=== PATIENT | female | born 1950 | race Caucasian/White ===

== ENCOUNTER 2017-05-12 15:32 | Inpatient (IN) | payer MEDICARE ==
[2017-05-12] MEDS ORDERED: METOPROLOL TARTRATE 25 MG TAB PO ONE (15:50)
--- NOTE | 2017-05-12 16:17 | RAD ---
PROCEDURE: Chest,2 Views CLINICAL HISTORY: chest/abd pain INDICATION: Same as above COMPARISON: 07/07/2013 TECHNIQUE: PA and and lateral chest radiographs were obtained. FINDINGS: Note is again made of discoid parenchymal scarring/atelectasis in the lingula of the left lung, unchanged since 06/28/2013 There are no discrete airspace infiltrates, pneumothoraces or pleural effusions. The pulmonary vascularity is normal The cardiomediastinal silhouette is unremarkable for patient's age and sex. IMPRESSION: There is no acute pleural-parenchymal process seen in the imaged lung schultz. Place of interpretation: [facility]iology. Electronically signed by: Shamir Acosta MD 05/12/2017 4:16 PM CDT Workstation: [id number]
--- NOTE | 2017-05-12 16:23 | RAD ---
EXAM DESCRIPTION: Abdomen Flat Upright CLINICAL HISTORY: chest/abd pain 3 days COMPARISON: None. FINDINGS: AP supine and upright views of the abdomen show no evidence for free intraperitoneal air. There are air-filled dilated loops of small bowel central abdomen. Mild scattered air-fluid levels are seen. There is a paucity of bowel gas in colon. No abnormal calcifications are seen in the expected location of the renal collecting systems. Visualized lung bases are unremarkable. Mild levocurvature of the mid lumbar spine. Moderate disc degenerative changes are seen at L4-5 and L5-S1. Vascular calcifications are seen. IMPRESSION: Air-filled dilated loops of small bowel central abdomen raising suspicion for possible at least partial distal small bowel obstruction. Consider further evaluation with CT of the abdomen and pelvis. Electronically signed by: Varun Gamboa MD 05/12/2017 4:23 PM CDT
[2017-05-12] MEDS ORDERED: THIAMINE HCL INJ 100 MG/ML VIAL ONE (16:27)
[2017-05-12] MEDS ORDERED: SOD CHL IVS ONE ×2 (16:33→19:00)
[2017-05-12] MEDS ORDERED: HYPERTONIC IVS ONE ×2 (16:33→19:00)
[2017-05-12] MEDS ORDERED: MAGNESIUM SULFATE PREMIX 2GM 2 GM in PREMIX BAG 1 BAG IVPB ONE (16:33)
[2017-05-12] MEDS ORDERED: POTASSIUM CHLORIDE ELIXIR 20 MEQ/15 ML UD PO ONE (16:35)
[2017-05-12] MEDS ORDERED: MAGNESIUM SULFATE PREMIX 2GM 50 ML IVPB ONE (16:37)
--- NOTE | 2017-05-12 17:15 | ED.PDOC ---
History of Present Illness - General Chief Complaint: General Stated Complaint: hypertension and racing heart Time Seen by Provider: 05/12/17 15:34 Source: patient Exam Limitations: no limitations - History of Present Illness Initial Comments: the patient is a 66-year-old female with a history of hyponatremia, hypertension and alcoholism along with some depression. The patient is presented secondary to palpitations with mild associated shortness of breath and mild chest discomfort. She has been feeling weak as well for the last couple of days. 2 days ago she quit drinking alcohol. 3 days ago she ran out her metoprolol. No diarrhea. No fevers. No dysuria. No syncope. Timing/Duration: other - 3 days Severity: moderate Improving Factors: rest Worsening Factors: movement Associated Symptoms: chest pain - much pain as a mild pressure with the palpitations, loss of appetite, malaise, weakness Allergies/Adverse Reactions: Allergies Amoxicillin Allergy (Verified 05/12/17 15:54) NOTED ON THE 05/23/13 BY EMILIA VIGIL Home Medications: Ambulatory Orders Lisinopril 40 mg PO AM #0 07/09/13 Meloxicam [Mobic] 15 mg PO 07/12/14 Albuterol Inhaler [Ventolin Hfa Inhaler] 2 puff INH QID PRN 05/12/17 Metoprolol Succinate [Toprol XL] 50 mg PO BEDTIME 05/12/17 Review of Systems - Review of Systems Constitutional: States: malaise, weakness EENTM: States: no symptoms reported Respiratory: States: short of breath - ild Cardiology: States: chest pain - mild, palpitations Gastrointestinal/Abdominal: States: nausea - mild Genitourinary: States: no symptoms reported Musculoskeletal: States: no symptoms reported Skin: States: no symptoms reported Neurological: States: anxiety, headache - mild, tremors - mild Endocrine: States: no symptoms reported All other Systems: No Change from Baseline Past Medical History (General) - Patient Medical History Hx Seizures: No Hx Stroke: No Hx Asthma: No Hx of COPD: No Hx Cardiac Disorders: Yes Hx Congestive Heart Failure: No Hx Pacemaker: No Hx Hypertension: Yes Hx Diabetes: No Hx MRSA: No Surgical History: no surgical history - Vaccination History Hx Tetanus, Diphtheria Vaccination: No Hx Influenza Vaccination: No Hx Pneumococcal Vaccination: No - Social History Hx Tobacco Use: Yes Hx Alcohol Use: Yes Hx Substance Use: No Hx Substance Use Treatment: No Hx Depression: No Hx Physical Abuse: No Hx Emotional Abuse: No - Activities of Daily Living Hospice Agency (if applicable):: None - Female History Patient is a Female of Child Bearing Age (10 -59 yrs old): No Patient : No Family Medical History - Family History Mother Family History: Unknown Physical Exam - Physical Exam General Appearance: Alert, Anxious, No apparent distress Eye Exam: bilateral normal Ears, Nose, Throat: hearing grossly normal, normal ENT inspection, normal pharynx Neck: non-tender, full range of motion, supple Respiratory: chest non-tender, lungs clear, normal breath sounds, no respiratory distress, no accessory muscle use Cardiovascular/Chest: normal peripheral pulses, no edema, tachycardia, irregularly irregular Peripheral Pulses: radial,right: 2+, radial,left: 2+, dorsalis pedis,right: 2+, dorsalis pedis,left: 2+, posterior tibialis,right: 2+, posterior tibialis,left: 2+ Gastrointestinal/Abdominal: non tender, soft Rectal Exam: deferred Back Exam: normal inspection, no CVA tenderness, no vertebral tenderness Extremity: normal range of motion, non-tender, normal inspection, no pedal edema , normal capillary refill Neurologic: no motor/sensory deficits, alert, normal mood/affect, oriented x 3 Skin Exam: normal color Comments: Vital Signs (72 hours) 05/12/17 15:36 Temperature 99.0 F Pulse Rate [ 117 H pulse ox] Respiratory 22 Rate Blood Pressure 151/107 [Left Arm] O2 Sat by Pulse 93 L Oximetry Progress - Progress Progress: 05/12/17 17:18 the patient is a 66-year-old female presenting to the emergency room due to multiple symptoms. She has significant hyponatremia, hypochloremia, hypokalemia, hypomagnesemia. She is also likely withdrawing some from alcohol. The patient has received some thiamine IV. She still needs the folate and multivitamin. The patient has also received some oral potassium and will need more the future. She is receiving IV magnesium. We are currently sending off for some IV hypertonic saline. This is being acquired from another hospital. The patient has received a small dose of Ativan. she is also received a dose of the metoprolol that she ran out of 3-4 days ago. The measures above have slowed the patient's heart rate down by 10-15 bpm. She is feeling somewhat better already. There is the question of a mild possible partial small bowel obstruction on x-ray. Her symptoms at least at this time do not appear consistent with that. This will bear following. Urinalysis is still pending at this time. Conttinue telemetry monitoring. So far this looks like a sinus tachycardia with PACs rather than atrial fibrillation. Cardiac enzymes are negative so far. - Results/Orders Results/Orders: Laboratory Tests 05/12/17 05/12/17 05/12/17 15:40 15:40 15:40 WBC 14.2 H RBC 4.62 Hgb 14.3 Hct 42.4 MCV 91.9 MCH 31.0 MCHC 33.8 RDW 13.7 Plt Count 324 MPV 9.4 Absolute Neuts (auto) 10.50 H Absolute Lymphs (auto) 2.70 Absolute Monos (auto) 0.80 Absolute Eos (auto) 0.00 Absolute Basos (auto) 0.10 Neutrophils % 74.3 Lymphocytes % 18.9 L Monocytes % 5.8 Eosinophils % 0.3 L Basophils % 0.7 PT 10.5 INR 0.930 PTT (SP) 30.8 D-Dimer, Quantitative < 230 Sodium 122 L Potassium 2.7 L Chloride 78 L* Carbon Dioxide 29 Anion Gap 17.7 BUN 10 Creatinine 0.96 BUN/Creatinine Ratio 10.4 Random Glucose 158 H Serum Osmolality 248.3 L* Calcium 9.0 Magnesium 1.6 L Total Bilirubin 1.0 AST 22 ALT 14 Alkaline Phosphatase 81 Creatine Kinase 59 CK-MB (CK-2) 2.1 CK-MB (CK-2) % Not Reportable Troponin I < 0.02 B-Natriuretic Peptide 132.0 H Serum Total Protein 8.0 Albumin 4.3 Globulin 3.7 H Albumin/Globulin Ratio 1.2 Amylase 67 Lipase 35 TSH 2.48 urinalysis is still pending at this time. chest x-ray shows no acute pathology. Abdominal x-ray shows mild dilated loops of small bowel possibly consistent with a partial small bowel obstruction. Departure - Departure Clinical Impression: Hypokalemia, Hyponatremia, Hypochloremia, Hypomagnesemia, Palpitations Alcohol withdrawal Qualifiers: Complication of substance-induced condition: uncomplicated Qualified Code(s): F10.230 - Alcohol dependence with withdrawal, uncomplicated Disposition: Admit Patient Home Medications: Ambulatory Orders Lisinopril 40 mg PO AM #0 07/09/13 Meloxicam [Mobic] 15 mg PO 07/12/14 Albuterol Inhaler [Ventolin Hfa Inhaler] 2 puff INH QID PRN 05/12/17 Metoprolol Succinate [Toprol XL] 50 mg PO BEDTIME 05/12/17 Decision To Admit - Decistion To Admit Decision to Admit Reason: Medical Nature Decision to Admit Date: 05/12/17 Decision to Admit Time: 17:21
--- NOTE | 2017-05-12 18:02 | HP ---
SUPERVISING PHYSICIAN: Speedy Mcdowell MD CHIEF COMPLAINT: Hypertension and palpitations. HISTORY OF PRESENT ILLNESS: Ms. Boyer is a 66-year-old, female patient with a past history of alcoholism and hypertension with some depression. She presented to the Emergency Department today secondary to having palpitations with some mild shortness of breath and mild chest discomfort. She notes that she has not been feeling well for the last couple of days. She notes that she drinks on a daily basis when she can financially afford alcohol which she says averages about four days a week. Her choice alcohol is whiskey. She drinks anywhere from a pint to a quart a day. She noted that her last drink was two days previous to this admission. She also notes that she ran out of her metoprolol three days ago and starting having the palpitations earlier today. She actually had been trying to take a family members home medications prior to admission to the Emergency Department. She denied any actual diarrhea, but notes she is having issues with constipation and has been actually having some nausea after meals due to the fact that she gets bloated. Studies in the Emergency Department initially included a CBC that showed she had a leukocytosis of 14.2 with an early left shift. Urinalysis also showed that she had 4+ bacteria with 10 to 20 WBCs on the microscopic exam and also notes she has chronic urinary tract infections with the last being treated within the last 30 days. She is unsure of what medications she was on. Her electrolytes showed she had a severe hyponatremia with a sodium of 122 with a hypokalemia with potassium 2.7. Renal functions were within normal limits. She also had a low magnesium of 1.6. Liver functions were all within normal limits as well as amylase and lipase. Cardiac enzymes initially showed troponin less than 0.02. She also had radiographic studies to include an abdominal x-ray and per radiologic interpretation there was note of air-filled, dilated loops of small bowel raising suspicion for possible partial small bowel obstruction. Dr. Mcdowell, Emergency Room physician , requested that the patient be admitted for severe hyponatremia and concerns for alcohol withdrawal given the patient's history. In the Emergency Department , she was given metoprolol initially with vital signs showing her to be hypertensive with a blood pressure of 151/107, heart rate 117. After metoprolol , blood pressure prior to admission to the Medical/Surgical Floor was 140/69, heart rate 70, saturation 98% on room air. She was given a single dose of Ativan, 100 mg of thiamine and 2 grams of magnesium and then admitted to the Medical/Surgical Floor. She is now admitted for severe hyponatremia and concern for alcohol withdrawal with hypertension and concern for developing small bowel obstruction. PAST MEDICAL HISTORY: 1. Hypertension. 2. Osteoarthritis of the hands. 3. Chronic obstructive pulmonary disease with chronic bronchitis in a smoker. 4. Chronic tobacco abuse. 5. Frequent urinary tract infections. 6. History of alcohol abuse. PAST SURGICAL HISTORY: 1. Hysterectomy. 2. Hemorrhoidectomy. CURRENT MEDICATIONS: 1. Metoprolol succinate 50 mg at bedtime. 2. Albuterol inhaler 2 puffs q.i.d. as needed. 3. Mobic 15 mg daily. 4. Lisinopril 40 mg daily. ALLERGIES: PENICILLIN. FAMILY HISTORY: Positive for both parents with alcoholism. Father had history of lymphoma. Mother from complications from a stroke. SOCIAL HISTORY: The patient lives near [facility]. She is now for 14 years. Her did pass away from multiple myeloma, who also was an alcoholic. She is retired. 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 She does have a significant history of tobacco abuse and smokes approximately half a pack a day and has since a young age. She notes she does drink on a regular basis. She reports that she drinks two large glasses of whiskey everyday when financially able to, which averages about four days a week. She notes she usually starts drinking early afternoon until she falls asleep. She denies drinking in the mornings, but does admit she is an alcoholic, but feels that she could quit at anytime. She denies any illicit drug use. REVIEW OF SYSTEMS: CONSTITUTIONAL: She notes she does have some general malaise and weakness which has been present for several weeks. HEENT: Denies sore throat, neck pain, neck stiffness, nasal congestion or vision disturbances. RESPIRATORY: She notes she has some shortness of breath associated with her palpitations as per history of present illness and normally uses an inhaler on a daily basis, but denies any hemoptysis or productive cough. CARDIOVASCULAR: As noted in history of present illness, chest pains with mild palpitations, but denies any syncopal episodes. GASTROINTESTINAL: She has some nausea and has recently had some issues with constipation. Last emesis was on the day of admission prior to going to the Emergency Department. She does periodically note that she has some streaky, red stools at times. NEUROLOGIC: She does note that in the last day or two she has had some anxiety issues with a mild headache and a very mild tremor. PHYSICAL EXAMINATION: VITAL SIGNS: Temperature on admission to the Emergency Department was 99.0 with pulse 117, blood pressure 151/107, saturation 93% on room air with respirations 22. After treatment with metoprolol and admission to the Medical/Surgical Floor , pulse was 78, blood pressure initially was 140/69, respirations 18, saturation 98% on room air. Admission weight 68.5 kg. GENERAL: The patient is very pleasant, appears to be in no acute distress . She is alert and obviously anxious, but had just gotten Ativan. She notes she has had some mild tremors over the last several days, but she is alert and oriented. HEENT: Tympanic membranes clear bilaterally. Oropharynx is pink, moist mucous membranes without any lesions. NECK: Supple without tenderness. Full range of motion. No jugular venous distention noted. CHEST: Lungs clear to auscultation bilaterally without any rhonchi, wheezes, or rales. CARDIOVASCULAR: Regular rate and rhythm with a faint systolic murmur which the patient notes has been present for well over three years and is followed by her primary care provider in [place], which she is unsure of the name. ABDOMEN: Positive bowel sounds. Some mild distention, but no rebound tenderness. There is some mild tenderness with palpation to the lower quadrants. EXTREMITIES: There is no cyanosis, clubbing or edema. INTEGUMENT: No rashes, no jaundice or spider angiomas on the chest wall or abdomen. NEUROLOGIC: The patient is alert and oriented times three. Cranial nerves II- XII are grossly intact. Facial features are symmetrical. Extraocular movements are within normal limits. She does have a mild tremor at rest which she says is fairly common for her. There are no neuro or sensory motor deficits noted. LABORATORY: CBC shows leukocytosis of 14.2, hemoglobin 14.3, hematocrit 42.4, platelet count 324,000. RBC indices within normal limits. Differential did show an early left shift with elevated absolute neutrophil count. Coagulation studies showed PT 10.5, PT-T 30.8, D-dimer less than 230. Chemistries showed a significant hyponatremia and hypokalemia with sodium 122, potassium 2.7. Chloride was low at 78. Anion gap was normal, CO2 was normal. BUN 10, creatinine 0.96. Glucose 158. Serum osmolality4 28, calcium 9.1, magnesium 1.6. Liver functions all within normal limits. Initial troponin less than 0.02 as well as CPK was normal. BNP slightly elevated at 132. Total protein normal, albumin normal. Pancreatic enzymes were within normal limits. TSH 2.48. Urinalysis showed 100 protein with trace intact blood and small leukocyte esterase on dipstick with microscopic exam showing 10 to 20 WBCs, 10 to 20 RBCs, 0 to 1 epithelials with 2+ amorphus material and 4+ bacteria. MICROBIOLOGY: Urine culture pending. RADIOLOGY: Initially in the Emergency Department, chest x-ray per radiologic interpretation showed no acute pleural parenchymal processes noted in imaged schultz. She then had an abdominal x-ray, flat and upright, and per radiologic interpretation there was note of air-filled, dilated loops of small bowel in the central abdomen, raising suspicion for possible at least partial distal small bowel obstruction. Consideration for CT of abdomen and pelvis. After admission to the Medical/Surgical Floor, a CT of the abdomen and pelvis with contrast was completed and per radiologic interpretation there was noted of multiple dilated loops of proximal and mid small bowel with normal caliber distal small bowel noted, suspicious for developing small bowel obstruction. EKG shows tachycardia with PACs. ASSESSMENT: 1. Symptomatic hyponatremia secondary to chronic alcoholism. 2. Moderate hypokalemia and hypomagnesemia secondary to ongoing alcohol abuse. 3. Mild alcohol withdrawal in the presence of alcoholism. 4. Chronic obstructive pulmonary disease with no obvious exacerbation on admission. 5. Chronic tobacco abuse, approximately half a pack a day in a chronic obstructive pulmonary disease patient. 6. Hypertension, uncontrolled secondary to failure to comply with medication regimen. 7. Chest pain and palpitations secondary to alcoholism and failure to comply with medication regimen. 8. Concerns for developing small bowel obstruction, unknown etiology. 9. Urinary tract infection as evidenced by 4+ bacteruria on admission urinalysis in a patient with a history of chronic urinary tract infections having recently been on antibiotics within the last 30 days. 10. Leukocytosis secondary to underlying urinary tract infection as well as exacerbated by developing partial small bowel obstruction and some demargination from ongoing nausea and vomiting. PLAN: Ms. Boyer is admitted to the Medical/Surgical Floor from the Emergency Department for treatment of underlying hyponatremia and other electrolyte imbalances to include hypokalemia and hypomagnesemia. She was given magnesium 2 grams IV in the Emergency Department as well as p.o. potassium. We will plan to start her on a banana bag, multivitamin with potassium 40 mEq 150 cc per hour. I will plan to recheck laboratory studies in the morning to include CBC, CMP and magnesium. Dr. Bishop has been consulted in regards to the small bowel obstruction and she will have a two series abdominal x-ray in the morning. She will also be made NPO tonight except for p.o. medications. We will resume her home home medications and treat her hypertension with clonidine p.r.n. as appropriate. I will start her on Librium 10 mg q.8h. in efforts to lessen any alcohol withdrawal symptoms. Urine cultures were submitted. Until sensitivity reports are available, we will treat with Rocephin 1 gram q.24h. Once culture results are available, we will target antibiotic therapy accordingly. In regards to chest pains, we will plan to repeat cardiac enzymes in 6 hours and again in the morning. We will plan to also repeat EKG in the morning. We will also start her on some Protonix for gastric protection as she remains NPO. We will also plan to provide her with the multivitamin infusion with folate and thiamine once her sodium normalizes . She will be started on DVT prophylaxis as per protocol. Anticipate length of stay to be two to three days pending clinical resolution of underlying hyponatremia and developing small bowel obstruction. Until discharge, we will continue to monitor the patient closely and await consultation with Dr. Bishop. #[id number] #[id number] TARA
[2017-05-12] MEDS ORDERED: cloNIDine HCL 0.2 MG TAB PO ONE (19:17)
[2017-05-12] MEDS ORDERED: chlordiazePOXIDE HCL 5 MG CAP PO PRN (19:18)
[2017-05-12] MEDS ORDERED: NON-FORMULARY MEDICATION 1 EA MIS (Lisinopril [Lisinopril] 40 MG) PO SCH (19:23)
[2017-05-12] MEDS ORDERED: SODIUM CHLORIDE 0.9% (FLUSH) 10 ML SYG IV PRN (19:25)
[2017-05-12] MEDS ORDERED: ALUM & MAG HYDROX-SIMETHICONE 30 ML UD PO PRN (19:25)
[2017-05-12] MEDS ORDERED: MAGNESIUM HYDROXIDE 30 ML UD PO PRN (19:25)
[2017-05-12] MEDS ORDERED: POTASSIUM CHLORIDE IVS SCH (19:30)
[2017-05-12] MEDS ORDERED: MULTIPLE VITAMIN IVS SCH (19:30)
[2017-05-12] MEDS ORDERED: [UNRECOGNIZED DRUG - OTHER] IVS SCH (19:30)
[2017-05-12] MEDS ORDERED: IV SET AND CAP CHANGE INJ INJ SCH (19:30)
[2017-05-12] MEDS ORDERED: ALBUTEROL SULFATE 2.5 MG/3 ML VIAL NEB PRN (19:35)
[2017-05-12] MEDS ORDERED: LISINOPRIL 10 MG TAB ONE (19:49)
[2017-05-12] MEDS ORDERED: cefTRIAXone SODIUM 1 GM VIAL ONE (19:50)
[2017-05-12] MEDS ORDERED: KCL 40MEQ/NS 1,000 ML IVS ONE (19:50)
[2017-05-12] MEDS ORDERED: SODIUM CHL 0.9% 50ML MIN-BAG+ 50 ML IVPB ONE (19:50)
[2017-05-12] MEDS ORDERED: MULTIPLE VITAMIN 10 ML VIAL ONE (19:52)
[2017-05-12] MEDS: cefTRIAXone SODIUM 1 GM in SODIUM CHL 0.9% 50ML MIN-BAG+ 50 ML IVPB SCH (20:26)
--- NOTE | 2017-05-12 20:52 | CT ---
PROCEDURE: Abdomen/Pelvis w/Contrast HISTORY: question SBO as noted on xray Indication: Same as above Comparison: X-ray of the abdomen done on the same day . Technique: CT of the abdomen and pelvis was done with intravenous contrast. Images were obtained from the lung base to the level of the pubic symphysis in axial plane, followed by orthogonal sagittal and coronal reconstruction. Oral contrast was not given for the study. The patient was injected with contrast intravenously, without any documented immediate adverse reactions. This exam was performed according to our departmental dose-optimization program, which includes automated exposure control, adjustment of the mA and/or KV according to the patient's size and/or use of iterative reconstruction technique. FINDINGS: Images through the lung bases do not show any focal infiltrates or pleural effusions. The liver, gallbladder, pancreas, spleen and the bilateral adrenal glands appear unremarkable. The bilateral kidneys enhance with contrast in a normal fashion. Multiple benign-appearing cortical cysts are seen in the bilateral kidneys The urinary bladder is unremarkable . The bilateral ureters and the bilateral periureteral soft tissues and fat planes are unremarkable. Multiple dilated loops of proximal and mid small bowel with normal caliber distal small bowel are noted suspicious for developing small bowel obstruction. The appendix is not visualized The ileocecal junction appears unremarkable. There is no CT evidence of acute colonic diverticulitis or colitis or large bowel obstruction. There is large bowel diverticulosis The splenic and portal veins are of normal caliber, without any filling defects. There is no pathological lymphadenopathy in the retroperitoneum or in the pelvic region. There is no evidence of free fluid or free air in the abdomen or the pelvic region. There is no clinically significant abdominal aortic aneurysm. Atherosclerotic calcifications involving the abdominal aorta and the takeoff of the superior mesenteric artery is noted Note is made of small fat-containing bilateral inguinal hernias The visualized lumbar spine shows multilevel degenerative change . The paravertebral soft tissues are unremarkable. The remainder of the pelvic structures are unremarkable. IMPRESSION: Multiple dilated loops of proximal and mid small bowel with normal caliber distal small bowel are noted suspicious for developing small bowel obstruction.. Location of Interpretation: Teleradiology Electronically signed by: Shamir Acosta MD 05/12/2017 8:51 PM CDT Workstation: [id number]
[2017-05-12] MEDS: METOPROLOL SUCCINATE XL 50 MG TAB PO SCH (21:15)
--- NOTE | 2017-05-12 21:38 | PCM.CORE ---
Physician DVT/VTE - Nurse DVT Assessment & Total Each Risk Factor Represents 2 Points: Age 60-74 Each Risk Factor Represents 1 Point: Hx of smoking past year Each Risk Factor is 1 Point: Hx of Inflammatory Bowel Disease, Obesity (BMI >25) DVT Assessment Score: 5 - 5 or more Very High Risk Treatments: Early Ambulation *, Sequential Compression Device Pharmacological: Enoxaparin 40mg SQ Daily
[2017-05-12] MEDS ORDERED: ENOXAPARIN SODIUM 40 MG/0.4 ML SYG SUBCU SCH (22:00)
[2017-05-12] MEDS: chlordiazePOXIDE HCL 5 MG CAP PO SCH (22:04)
[2017-05-13] MEDS ORDERED: KCL 40MEQ/NS 1,000 ML IVS SCH (04:00)
[2017-05-13] MEDS: chlordiazePOXIDE HCL 5 MG CAP PO SCH ×3 (05:36→21:59)
--- NOTE | 2017-05-13 07:09 | RAD ---
Procedure: XR ABDOMEN 2 VIEWS SUPINE ERECT Exam Date: 05/13/2017 Ordering Provider: Pavel Tran NP Clinical Indication: developing SBO Comparison: 05/12/2017 CT abdomen pelvis Findings: Gaseous distention of the central small bowel with gas seen distally in the colon. No colonic distention. There is no pneumoperitoneum. There are no suspicious calcifications. Pelvic phleboliths. There is no acute skeletal abnormality. Impression: 1. Features suspicious for partial small bowel obstruction. Electronically signed by: Kenny Chavarria MD 05/13/2017 7:08 AM CDT
[2017-05-13] MEDS: LISINOPRIL 10 MG TAB PO SCH (09:29)
[2017-05-13] MEDS ORDERED: MULTIPLE VITAMIN 10 ML VIAL ONE (09:53)
[2017-05-13] MEDS ORDERED: SODIUM CHLORIDE 0.9% 1000ML 1,000 ML ONE (09:53)
[2017-05-13] MEDS ORDERED: THIAMINE HCL INJ 100 MG/ML VIAL ONE (09:53)
[2017-05-13] MEDS: MULTIPLE VITAMIN INJ 10 ML, THIAMINE HCL INJ 100 MG in SODIUM CHLORIDE 0.9% 1000ML 1,00... IVS SCH (10:16)
[2017-05-13] MEDS ORDERED: MAGNESIUM HYDROXIDE 30 ML UD PO ONE (10:22)
--- NOTE | 2017-05-13 10:41 | CONS ---
DATE OF CONSULTATION: 05/13/17 HISTORY OF PRESENT ILLNESS: The patient is a 66-year-old female who was admitted with weakness, shortness of breath, and chest discomfort. She was found to have been hypokalemic, hyponatremic with a distended abdomen and a history of abdominal distention with nausea and vomiting over the last several months on an intermittent basis. She denies vomiting of blood or having bloody or melanotic stools. She states that she can tell that her abdomen is rumbling , but denies significant real cramps. The patient states she has had trouble with constipation over time where she would have intermittent hard stools mixed in with loose diarrhea stools. She has a halfway history of ongoing urinary tract infections. CT scan of the abdomen revealed dilated loops of small bowel suspicious for partial or early small bowel obstruction. PAST MEDICAL HISTORY: 1. Chronic obstructive pulmonary disease with bronchitis. 2. Tobacco abuse. 3. Osteoarthritis. 4. Hypertension. 5. Urinary tract infections. 6. History of alcohol abuse. PAST SURGICAL HISTORY: 1. Hysterectomy. 2. Hemorrhoidectomy. CURRENT MEDICATIONS: 1. Metoprolol. 2. Albuterol. 3. Mobic. 4. Lisinopril. ALLERGIES: PENICILLIN. FAMILY HISTORY: Positive for alcohol abuse, lymphoma and cerebrovascular accident. SOCIAL HISTORY: The patient is . She lives at [facility]. She has smoked since the age of 10 and does abuse alcohol and has since she was a teenager. She denies the use of street drugs at any time. She also states she has never had withdrawal symptoms. REVIEW OF SYSTEMS: There has been no significant weight loss. She denies shortness of breath except with exercise. Denies productive cough or hemoptysis. Chest pain that she came to the Emergency Room with is a new thing. PHYSICAL EXAMINATION: GENERAL: The patient is awake, alert, cooperative, and currently in no acute distress. VITAL SIGNS: The patient is currently afebrile, normotensive. HEENT: Sclerae nonicteric. Mucous membranes moist. NECK: Without adenopathy. BACK: Without CVA tenderness. CHEST: Equal breath sounds bilaterally. HEART: Regular rhythm. ABDOMEN: Soft, distended and nontender. Bowel sounds are hyperactive, but there are no tinkles or rushes noted. There are nontender reducible hernias bilaterally in the groins. PELVIC/RECTAL: Deferred. EXTREMITIES: Without cyanosis, clubbing or edema. LABORATORY: Today, white count 9,000 down from 14,000. Hemoglobin 12.8. Platelet count 264,000 and normal differential. Sodium is up to 125 from 122. Potassium is to 4.5 from 2.7. Creatinine is down to 0.89. Calcium is down to 8.5. Magnesium is up to 2.4. Troponin has remained normal. X-rays today still show dilated loops of small bowel, appear to be gas-filled. There is a large amount of air in the colon. There is no transition point noted. I&O reveals adequate urine and the patient states she has had a bowel movement this morning. She has been drinking water despite being NPO. ASSESSMENT: 1. Ileus versus partial bowel obstruction with no signs of ischemic bowel. 2. Urinary tract infection. 3. History of alcohol abuse. 4. Chronic obstructive pulmonary disease secondary to tobacco abuse. RECOMMENDATION: We will attempt a clear liquid diet, give the patient a dose of Milk of Magnesia and repeat the x-rays in the morning. #[id number] [facility]
[2017-05-13] MEDS: NICOTINE PATCH 14 MG TD SCH (11:33)
[2017-05-13] MEDS ORDERED: THIAMINE HCL INJ 100 MG/ML VIAL IV ONE (15:50)
[2017-05-13] MEDS ORDERED: cloNIDine HCL 0.2 MG TAB PO ONE (15:50)
--- NOTE | 2017-05-13 19:58 | PN ---
DATE: 05/13/17 SUPERVISING PHYSICIAN: Speedy Mcdowell M.D. SUBJECTIVE: The patient is without any chest pains. She has not had any nausea or vomiting. She actually said she had a bowel movement through the night. She remains afebrile. She has not had any worsening signs of alcohol withdrawal after being on Librium. OBJECTIVE: VITAL SIGNS: T max 97.8, pulse 64, blood pressure 120/85, respirations 16, satting 96% on room air. I's and O's show a positive balance of 903 with 1303 in, 400 out. Weight 69.4 kg. She has had 1 bowel movement. CHEST: Lungs are clear to auscultation. HEART: regular rate and rhythm. ABDOMEN: Soft, non-tender. Positive bowel sounds. EXTREMITIES: No clubbing, cyanosis or edema. NEUROLOGIC: She is alert and oriented times three. PSYCHIATRIC: She remains alert and oriented. She has not reported any auditory or visual hallucinations and remains without any other signs of withdrawal. LABORATORY: CBC to now shows a normal white count at 9.0, otherwise all within normal limits. Differential shows to be within normal limits. Chemistries show an improvement in her sodium, it is up to 125 as well as chloride is up to 89. BUN 11, creatinine 0.89, osmolality is up to 251, magnesium is normalized at 2.4. Troponins show all to be within normal limits at 0.02 or less. CPK is within normal limits. MICROBIOLOGY: Preliminary urine culture shows gram-negative rods with sensitivity pending. RADIOLOGY: Abdominal x-ray 2 view this morning per radiology interpretation shows features suspicious for partial small bowel obstruction. ASSESSMENT: 1. Symptomatic hyponatremia secondary to chronic alcoholism showing improvement after IV fluids. 2. Moderate hypokalemia and hypomagnesemia secondary to ongoing alcohol abuse now normalized after replacement with p.o. potassium as well as IV potassium and magnesium. 3. Mild alcohol withdrawal without any delirium tremors in the presence of alcoholism. 4. Chronic obstructive pulmonary disease with no obvious exacerbation on admission. 5. Chronic tobacco abuse of approximately 1/2 pack a day in a chronic obstructive pulmonary disease patient encouraged to stop smoking currently on nicotine patch. 6. Hypertension, uncontrolled secondary to failure to comply with medication regimen showing improvement after resuming medication regimen and p.r.n. Clonidine. 7. Chest pains reported as more of a palpitation secondary to the patient being noncompliant with her medication regimen having been off of beta inocencia for several days exacerbated by ongoing chronic alcohol abuse showing to be stable now back on beta blockade. 8. Partial small bowel obstruction, unknown etiology, followed by Dr. Bishop. 9. Urinary tract infection with gram-negative rods on preliminary urine culture with the patient on parenteral antibiotics to include Rocephin. 10. Leukocytosis secondary to underlying urinary tract infection as well as exacerbated by developing partial small bowel obstruction showing now normalization after IV fluids and IV antibiotics. PLAN: Will continue with the patient's plan of care in conjunction with Dr. Bishop in regards to small bowel obstruction. Dr. Bishop has given the patient a diet of clear liquids and encouraged ambulation. She remain on Librium and daily banana bag with thiamine both to improve fluid status and hyponatremia. Will anticipate discharge at Dr. Bishop's discretion once small bowel obstruction has clinically improved and the patient is able to tolerate a diet. Until discharge, will continue to monitor the patient closely and treat appropriately. #[id number] [facility]
[2017-05-13] MEDS ORDERED: SODIUM CHL 0.9% 50ML MIN-BAG+ 50 ML IVPB ONE (20:12)
[2017-05-13] MEDS ORDERED: cefTRIAXone SODIUM 1 GM VIAL ONE (20:12)
[2017-05-13] MEDS: cefTRIAXone SODIUM 1 GM in SODIUM CHL 0.9% 50ML MIN-BAG+ 50 ML IVPB SCH (20:50)
[2017-05-13] MEDS: ACETAMINOPHEN 325 MG TAB PO PRN (20:51)
[2017-05-13] MEDS: SODIUM CHLORIDE 0.9% (FLUSH) 10 ML SYG IV SCH (20:51)
[2017-05-13] MEDS: METOPROLOL SUCCINATE XL 50 MG TAB PO SCH (20:52)
[2017-05-13] MEDS ORDERED: ENOXAPARIN SODIUM 40 MG/0.4 ML SYG SUBCU SCH (21:00)
[2017-05-14] MEDS: ACETAMINOPHEN 325 MG TAB PO PRN (02:57)
[2017-05-14] MEDS: chlordiazePOXIDE HCL 5 MG CAP PO SCH ×2 (06:35→14:30)
--- NOTE | 2017-05-14 06:41 | RAD ---
Procedure: XR ABDOMEN 2 VIEWS SUPINE ERECT Exam Date: 05/14/2017 Ordering Provider: GARRETT ISAAC MD Clinical Indication: fu bowel obstruction Comparison: 05/13/2017 Findings: Stable gaseous distention of the central small bowel with gas seen distally in the colon. No colonic distention. There is no pneumoperitoneum. There are no suspicious calcifications. Pelvic phleboliths. There is no acute skeletal abnormality. Impression: 1. Persistent features of partial small bowel obstruction. Electronically signed by: Kenny Chavarria MD 05/14/2017 6:41 AM CDT
[2017-05-14] MEDS ORDERED: SODIUM CHLORIDE 0.9% 1000ML 1,000 ML ONE (09:06)
[2017-05-14] MEDS ORDERED: THIAMINE HCL INJ 100 MG/ML VIAL ONE (09:06)
[2017-05-14] MEDS: MULTIPLE VITAMIN INJ 10 ML, THIAMINE HCL INJ 100 MG in SODIUM CHLORIDE 0.9% 1000ML 1,00... IVS SCH (09:06)
[2017-05-14] MEDS ORDERED: MULTIPLE VITAMIN 10 ML VIAL ONE (09:07)
[2017-05-14] MEDS: LISINOPRIL 10 MG TAB PO SCH (09:08)
[2017-05-14] MEDS: SODIUM CHLORIDE 0.9% (FLUSH) 10 ML SYG IV SCH (09:08)
[2017-05-14] MEDS: NICOTINE PATCH 14 MG TD SCH (09:08)
[2017-05-14] MEDS ORDERED: cloNIDine HCL 0.1 MG TAB PO ONE (13:02)
[2017-05-14 13:05] VITALS: BP 200/100; TEMP 97.1; O2SAT 98
--- NOTE | 2017-05-14 21:51 | DS ---
SUPERVISING PHYSICIAN: Speedy Mcdowell M.D. DISCHARGE DIAGNOSIS: 1. Diverticulosis with strong suspicion of a rectovaginal fistula. 2. Partial small bowel obstruction. 3. Urinary tract infection. 4. Symptomatic hyponatremia on admission with an underlying chronic hyponatremia secondary to chronic alcoholism. 5. Moderate hypokalemia and hypomagnesemia that has resolved most likely due to ongoing alcohol abuse. 6. Chronic obstructive pulmonary disease. 7. Chronic tobacco abuse. She smokes approximately 1/2 pack of cigarettes a day. 8. Hypertension with poor medical compliance. 9. Chest pains and palpitations secondary to alcoholism and failure to comply with the medication regimen. 10. Leukocytosis on admission that has now resolved. HISTORY OF PRESENT ILLNESS: This is a 66 year-old female patient who has a history of alcoholism and hypertension that presented to the Emergency Room secondary to having palpitations and shortness of breath as well as some mild chest discomfort. She had not been feeling well for several days prior to her admission to the Emergency Room. She does drink alcohol on a daily basis when she can afford it and she averages about 4 to 5 days per week and her alcohol of choice is whiskey. She drinks approximately a pint to 1 quart daily. She also smoked 1/2 pack of cigarettes per day and has a history of chronic obstructive pulmonary disease. She had also run out of her Metoprolol several days prior and had not gotten it refilled. In the Emergency Room, her WBCs were 14.2 with an early left shift. She had a urinary tract infection on admission with 4+ bacteria, 10 to 20 urine WBCs and she also says that she has chronic urinary tract infections, her last one being treated approximately 30 days prior to admission. Electrolytes showed a severe hyponatremia with sodium 122 and hypokalemia with potassium 2.7. Her renal functions were within normal limits. Cardiac enzymes were negative. Magnesium was also low at 1.6. Liver function tests were within normal limits. Radiographic studies showed that she had air-filled dilated loops of small bowel raising suspicions for possible partial bowel obstruction. She was admitted for severe hyponatremia, alcohol withdrawal, hypokalemia and partial bowel obstruction as well as hypertension. Vital signs on admission had a heart rate of 70, blood pressure 140/69, O2 sats of 98%. She was admitted to the Medical/Surgical floor. HOSPITAL COURSE: WBCs stabilized overnight to 9,000. Her H&H was stable. Sodium was slowly corrected and today is 127 with potassium 4.2. Metoprolol was restarted and her blood pressure stabilized initially, but occasionally has gone up into the 170s/90s. She was given an additional dose of Clonidine and that brought her blood pressure down to the 150s/70s. She was also started on Librium every 8 hours as well as a nicotine patch. The patient also voiced concerns that when she urinated that it seemed that she frequently had stool in her urine. CT of the abdomen showed multiple dilated loops of proximal and mid small bowel with normal caliber distal small bowel noted suspicious for developing small bowel obstruction. Dr. Bishop was consulted and he voiced concerns that she had an ileus versus a partial small bowel obstruction, but that she had no signs of ischemic bowel but he also voiced concerns that there could be a rectovaginal fistula. She also has not ever had a colonoscopy and she did have a sister that from colon cancer. Given those concerns, Dr. Bishop spoke with Dr. Pena, weight reducing technician, and he suggested that she be transferred to [facility] for a colonoscopy as well as, if needed, a surgical intervention based on those results. The patient has been accepted at [facility] for transfer. DISCHARGE PLAN: The patient will be discharged in good condition to [facility]. She will be discharged in stable condition. She is presently on clear liquids and she is to continue that until further notice by the GI doctor. I continued her Rocephin as well as her home medications. I have also continued her Librium and I have sent all of her records, including labs and film reports to [facility]. She is to followup with her primary care physician after discharge from [facility]. At this point, she does not have a primary care physician, but I have encouraged her to do so. DISCHARGE MEDICATIONS: 1. Lisinopril. 2. Meloxicam. 3. Metoprolol. 4. Albuterol inhaler. 5. Ceftriaxone. Dr. Mcdowell is the collaborating physician and available for consultation. #[id number] [facility]
== END 2017-05-14 15:23 | disposition short-term general hospital (02) | DRG 897 ==
LOC: ER 15:32 → MS 18:00 → UNDOADMIN 18:00 → MS 23:51
PROVIDERS: ADMIT Nurse Practitioner Family; ATTEND Nurse Practitioner Acute Care
DX: F10.239 Alcohol dependence with withdrawal, unspecified (principal); E87.1 Hypo-osmolality and hyponatremia; N82.3 Fistula of vagina to large intestine; K56.60 Unspecified intestinal obstruction; N39.0 Urinary tract infection, site not specified; E87.6 Hypokalemia; E83.42 Hypomagnesemia; K57.90 Diverticulosis of intestine, part unspecified, without perforation or abscess without bleeding; J44.9 Chronic obstructive pulmonary disease, unspecified; F17.210 Nicotine dependence, cigarettes, uncomplicated; M19.90 Unspecified osteoarthritis, unspecified site; I10 Essential (primary) hypertension; R07.9 Chest pain, unspecified; R00.2 Palpitations; F32.9 Major depressive disorder, single episode, unspecified; Z91.14 Patient's other noncompliance with medication regimen; Z79.899 Other long term (current) drug therapy; Z88.0 Allergy status to penicillin; Z79.1 Long term (current) use of non-steroidal anti-inflammatories (NSAID)

== ENCOUNTER 2017-09-24 13:41 | Emergency (ER) | payer MEDICARE ==
--- NOTE | 2017-09-24 14:25 | ED.PDOC ---
History of Present Illness - General Chief Complaint: General Stated Complaint: ELEVATED BP AND WEAKNESS IN LE Time Seen by Provider: 09/24/17 13:55 Source: patient, RN notes reviewed, Vital Signs reviewed Exam Limitations: no limitations - History of Present Illness Initial Comments: Patient comes in with c/o weakness that has gotten progressively worse over the past 2 weeks. Reports it feels the same as when her Sodium was low on her last visit. She also has high blood pressure but this is not new. It has been going on since she was last admitted here in March 2017. She does report she is still drinking Etoh but much less than before. Still smoking and had cut down the salt in her diet. Timing/Duration: getting worse - Over the past 2 weeks Severity: moderate Improving Factors: nothing Worsening Factors: movement Associated Symptoms: malaise, weakness Allergies/Adverse Reactions: Allergies Amoxicillin Allergy (Verified 09/24/17 13:55) NOTED ON THE 05/23/13 BY EMILIA VIGIL Home Medications: Ambulatory Orders Lisinopril 40 mg PO AM #0 07/09/13 Meloxicam [Mobic] 15 mg PO DAILY 07/12/14 Albuterol Inhaler [Ventolin Hfa Inhaler] 2 puff INH QID PRN 05/12/17 amLODIPine BESYLATE [Norvasc] 5 mg PO DAILY 09/24/17 Review of Systems - Review of Systems Constitutional: States: see HPI, malaise, weakness EENTM: States: no symptoms reported Respiratory: States: no symptoms reported. Denies: short of breath Cardiology: States: see HPI, other - Hypertension & a murmur Gastrointestinal/Abdominal: States: diarrhea - Chronic X 1year Genitourinary: States: no symptoms reported Musculoskeletal: States: no symptoms reported Skin: States: no symptoms reported Neurological: States: no symptoms reported All other Systems: No Change from Baseline Past Medical History (General) - Patient Medical History Hx Seizures: No Hx Stroke: No Hx Asthma: No Hx of COPD: No Hx Cardiac Disorders: Yes Hx Congestive Heart Failure: No Hx Pacemaker: No Hx Hypertension: Yes Hx Diabetes: No Hx Cancer: No Hx Hepatitis C: No Hx MRSA: No Surgical History: Hysterectomy - Vaccination History Hx Tetanus, Diphtheria Vaccination: No Hx Influenza Vaccination: No Hx Pneumococcal Vaccination: No Immunizations Up to Date: No - Social History Hx Tobacco Use: Yes Hx Alcohol Use: Yes - 1/2 GALLON IN A WEEK Hx Substance Use: No Hx Substance Use Treatment: No Hx Depression: No Hx Physical Abuse: No Hx Emotional Abuse: No - Female History Patient is a Female of Child Bearing Age (10 -59 yrs old): No Patient : No Family Medical History - Family History Father Living Status: Hx Family Asthma: No Hx Family Congestive Heart Failure: No Hx Family Hypertension: No Hx Family Stroke: No Hx Cardiac Disease: No Hx Family Diabetes: No Hx Family Cancer: Yes Mother Family History: Unknown Living Status: Age at (years of age): 65 Cause of : stroke Hx Family Asthma: No Hx Family Congestive Heart Failure: Yes Hx Family Hypertension: Yes Hx Family Stroke: Yes Hx Cardiac Disease: Yes Hx Family Diabetes: No Hx Family Cancer: Yes Physical Exam - Physical Exam General Appearance: Alert, Comfortable, No apparent distress, Well Developed, Well Groomed, Well Hydrated, Well Nourished Ears, Nose, Throat: hearing grossly normal, normal ENT inspection Neck: non-tender, supple, normal inspection Respiratory: chest non-tender, lungs clear, normal breath sounds, no respiratory distress, no accessory muscle use Cardiovascular/Chest: normal peripheral pulses, regular rate, rhythm, no edema, no gallop, systolic murmur Peripheral Pulses: radial,right: 2+, radial,left: 2+ Gastrointestinal/Abdominal: normal bowel sounds, non tender, soft, no organomegaly, no pulsatile mass Extremity: normal inspection, no pedal edema Neurologic: alert, normal mood/affect, oriented x 3 Skin Exam: normal color, warm/dry Comments: Vital Signs 09/24/17 09/24/17 13:56 14:05 Temperature 99.3 F Pulse Rate [ 104 H 100 H MONITOR] Respiratory 18 18 Rate Blood Pressure 143/103 145/81 [Left Arm] O2 Sat by Pulse 97 97 Oximetry Progress - Progress Progress: 09/24/17 15:37 Sodium is 120 - will start Hypertonic saline @ 150cc/hr 09/24/17 19:55 Repeat Na is 128. Will d/c home with instructions to increase salt intake and get labs rechecked w/in 2 weeks. - Results/Orders Results/Orders: Laboratory Tests 09/24/17 09/24/17 09/24/17 14:34 14:34 19:34 WBC 12.6 H RBC 4.69 Hgb 14.5 Hct 42.9 MCV 91.3 MCH 31.0 MCHC 33.9 RDW 14.3 Plt Count 303 MPV 7.8 Absolute Neuts (auto) 9.70 H Absolute Lymphs (auto) 1.90 Absolute Monos (auto) 0.70 Absolute Eos (auto) 0.20 Absolute Basos (auto) 0.10 Neutrophils % 77.0 Lymphocytes % 15.4 L Monocytes % 5.6 Eosinophils % 1.2 Basophils % 0.8 Sodium 120 L 128 L Potassium 3.8 3.4 L Chloride 81 L 90 L Carbon Dioxide 26 27 Anion Gap 16.8 14.4 BUN 16 15 Creatinine 1.03 0.97 BUN/Creatinine Ratio 15.5 15.5 Random Glucose 115 H 97 Serum Osmolality 244.3 L* 257.8 L Calcium 9.1 8.7 Magnesium 2.0 Total Bilirubin 0.7 AST 24 ALT 15 Alkaline Phosphatase 74 Serum Total Protein 7.7 Albumin 4.2 Globulin 3.5 Albumin/Globulin Ratio 1.2 - EKG/XRAY/CT CT Ordered: No CT Interpretation Call Back: No Departure - Departure Clinical Impression: Hyponatremia Time of Disposition: 19:56 Disposition: Discharge to Home or Self Care Condition: Fair Departure Forms: ED Discharge - Pt. Copy, Patient Portal Self Enrollment Instructions: DI for Hyponatremia Diet: resume usual diet - but increase salt intake Activity: increase activity as tolerated Referrals: Brian Ribeiro MD [Active Staff] - 1-2 Weeks (Recheck electrolytes) Home Medications: Ambulatory Orders Lisinopril 40 mg PO AM #0 07/09/13 Meloxicam [Mobic] 15 mg PO DAILY 07/12/14 Albuterol Inhaler [Ventolin Hfa Inhaler] 2 puff INH QID PRN 05/12/17 amLODIPine BESYLATE [Norvasc] 5 mg PO DAILY 09/24/17
[2017-09-24] MEDS ORDERED: SOD CHL 3% *HYPERTONIC* 500ML 500 ML IVS ONE (15:20)
[2017-09-24 19:40] VITALS: TEMP 98.1; O2SAT 97
[2017-09-24 20:07] VITALS: BP 133/79
== END 2017-09-24 20:07 | disposition home or self-care (01) ==
LOC: ER 13:41
DX: E87.1 Hypo-osmolality and hyponatremia (principal); I10 Essential (primary) hypertension; Z88.3 Allergy status to other anti-infective agents; Z79.899 Other long term (current) drug therapy; Z87.891 Personal history of nicotine dependence
CPT/HCPCS: 36415; 80048; 80053; 83735; 85025; J7799

== ENCOUNTER 2017-11-24 11:47 | Emergency (ER) | payer MEDICARE ==
[2017-11-24] MEDS ORDERED: IPRATROPIUM/ALBUTEROL 3 ML VIAL INH ONE (12:36)
[2017-11-24] MEDS ORDERED: SODIUM CHLORIDE 0.9% (FLUSH) 10 ML SYG IV PRN (12:36)
[2017-11-24] MEDS ORDERED: SODIUM CHLORIDE 0.9% 1000ML 1,000 ML IVS PRN (12:36)
--- NOTE | 2017-11-24 12:45 | ED.PDOC ---
History of Present Illness - General Chief Complaint: General Stated Complaint: Weakness, difficulty getting a good breath Time Seen by Provider: 11/24/17 12:36 Source: patient, family - History of Present Illness Initial Comments: PT PRESENTS TO THE ED WITH COMPLAINT OF WORSENING SOB AND GENERALIZED WEAKNESS OVER THE PAST 3 DAYS. PT REPORTS SHE HAS HAD SIMILAR SYMPTOMS FOR THE PAST MONTH WHICH WERE ATTRIBUTED TO ELECTROLYTE ABNORMALITIES. Severity: moderate Improving Factors: immobilization, rest Worsening Factors: medication Associated Symptoms: cough, malaise, shortness of breath, weakness Allergies/Adverse Reactions: Allergies Amoxicillin Allergy (Verified 11/24/17 12:03) NOTED ON THE 05/23/13 BY YARITZARN Home Medications: Ambulatory Orders Lisinopril 40 mg PO AM #0 07/09/13 Meloxicam [Mobic] 15 mg PO DAILY 07/12/14 Albuterol Inhaler [Ventolin Hfa Inhaler] 2 puff INH QID PRN 05/12/17 amLODIPine BESYLATE [Norvasc] 10 mg PO DAILY 09/24/17 Albuterol Inhaler [Ventolin Hfa Inhaler] 2 puff INH Q4HR PRN #1 inh 11/24/17 Prednisone 50 mg PO DAILY 5 Days #5 tab 11/24/17 Spacer/Aerosol-Holding Chamber [Aerochamber Plus] 1 mis INH DAILY #1 11/24/17 Review of Systems - Review of Systems Constitutional: States: see HPI, malaise, weakness. Denies: chills, fever EENTM: Denies: double vision, ear pain Respiratory: States: see HPI, cough, short of breath Cardiology: Denies: edema, palpitations Gastrointestinal/Abdominal: Denies: diarrhea, vomiting Genitourinary: Denies: dysuria, frequency Musculoskeletal: Denies: joint pain, joint swelling Skin: Denies: dryness, lesions Neurological: Denies: headache, numbness Past Medical History (General) - Patient Medical History Hx Seizures: No Hx Stroke: No Hx Asthma: No Hx of COPD: No Hx Cardiac Disorders: Yes Hx Congestive Heart Failure: No Hx Pacemaker: No Hx Hypertension: Yes Hx Diabetes: No Hx Cancer: No Hx Hepatitis C: No Hx MRSA: No - Vaccination History Hx Tetanus, Diphtheria Vaccination: No Hx Influenza Vaccination: No Hx Pneumococcal Vaccination: No - Social History Hx Tobacco Use: Yes - 1PPD Hx Alcohol Use: Yes - 1/2 GALLON IN A WEEK Hx Substance Use: No Hx Substance Use Treatment: No Hx Depression: No Hx Physical Abuse: No Hx Emotional Abuse: No - Female History Patient : No Family Medical History - Family History Father Living Status: Hx Family Asthma: No Hx Family Congestive Heart Failure: No Hx Family Hypertension: No Hx Family Stroke: No Hx Cardiac Disease: No Hx Family Diabetes: No Hx Family Cancer: Yes Mother Family History: Unknown Living Status: Age at (years of age): 65 Cause of : stroke Hx Family Asthma: No Hx Family Congestive Heart Failure: Yes Hx Family Hypertension: Yes Hx Family Stroke: Yes Hx Cardiac Disease: Yes Hx Family Diabetes: No Hx Family Cancer: Yes Physical Exam - Physical Exam General Appearance: Alert, Comfortable, No apparent distress Eye Exam: bilateral normal Ears, Nose, Throat: hearing grossly normal, normal ENT inspection Neck: non-tender, full range of motion, supple Respiratory: lungs clear, normal breath sounds, no respiratory distress, no accessory muscle use Cardiovascular/Chest: regular rate, rhythm, no murmur Gastrointestinal/Abdominal: non tender, soft Extremity: non-tender, normal inspection Neurologic: alert, normal mood/affect, oriented x 3 Skin Exam: normal color, warm/dry Progress - Progress Progress: 11/24/17 14:47 PT REPORTS SIGNIFICANT IMPROVEMENT IN SYMPTOMS AFTER DUONEB AND 1L NS. PT REQUESTING TO GO HOME. LABS AND DIAGNOSTIC STUDIES DISCUSSED. - Results/Orders Results/Orders: 11/24/17 12:36 Sodium Chloride 0.9% (Flush) [Saline Flush Syringe] 10 ml IV PRN PRN Sodium Chloride 0.9% 1000ML [Ns 1000 ml] 1,000 ml IVS .QD 11/24/17 12:37 IV Care:Saline Lock per Protoc QSHIFT Telemetry .ONCE EKG Assessment ONCE Pulse Oximetry Assessment DAILY 11/24/17 12:45 EKG STAT 11/25/17 09:00 Pulse Ox Daily Laboratory Results - last 24 hr 11/24/17 11/24/17 12:50 12:50 WBC 10.0 RBC 3.99 L Hgb 12.3 Hct 36.7 MCV 92.0 MCH 30.8 MCHC 33.5 RDW 14.8 H Plt Count 292 MPV 8.3 Absolute Neuts (auto) 7.20 H Absolute Lymphs (auto) 1.90 Absolute Monos (auto) 0.60 Absolute Eos (auto) 0.20 Absolute Basos (auto) 0.10 Neutrophils % 71.9 Lymphocytes % 19.3 L Monocytes % 6.2 Eosinophils % 1.8 Basophils % 0.8 Sodium 125 L Potassium 5.0 Chloride 88 L Carbon Dioxide 24 Anion Gap 18.0 BUN 22 H Creatinine 0.99 BUN/Creatinine Ratio 22.2 H Random Glucose 129 H Serum Osmolality 256.5 L Calcium 8.5 Total Bilirubin 0.3 AST 31 ALT 33 Alkaline Phosphatase 91 B-Natriuretic Peptide 16.8 Serum Total Protein 7.8 Albumin 3.8 Globulin 4.0 H Albumin/Globulin Ratio 1.0 L - EKG/XRAY/CT EKG: Sinus - @94BPM, NL INTERVLS, NL AXIS, POOR R WAVE PROGRESSION, no ST T wave changes, Unchanged from - APRIL 2017 XRAY: chest - NO ACUTE FINDINGS. Departure - Departure Clinical Impression: Acute bronchitis, Tobacco abuse, Hyponatremia with decreased serum osmolality, Generalized muscle weakness Time of Disposition: 14:51 Disposition: Discharge to Home or Self Care Condition: Fair Departure Forms: ED Discharge - Pt. Copy, Patient Portal Self Enrollment Instructions: DI for Hyponatremia, DI for Acute Bronchitis Referrals: [facility] [Provider Group] - 1-5 Days Prescriptions: Albuterol Inhaler [Ventolin Hfa Inhaler] 2 puff INH Q4HR PRN #1 inh PRN Reason: Shortness Of Breath/Wheezing Prednisone 50 mg PO DAILY 5 Days #5 tab Spacer/Aerosol-Holding Chamber [Aerochamber Plus] 1 mis INH DAILY #1 Home Medications: Ambulatory Orders Lisinopril 40 mg PO AM #0 07/09/13 Meloxicam [Mobic] 15 mg PO DAILY 07/12/14 Albuterol Inhaler [Ventolin Hfa Inhaler] 2 puff INH QID PRN 05/12/17 amLODIPine BESYLATE [Norvasc] 10 mg PO DAILY 09/24/17 Albuterol Inhaler [Ventolin Hfa Inhaler] 2 puff INH Q4HR PRN #1 inh 11/24/17 Prednisone 50 mg PO DAILY 5 Days #5 tab 11/24/17 Spacer/Aerosol-Holding Chamber [Aerochamber Plus] 1 mis INH DAILY #1 11/24/17
--- NOTE | 2017-11-24 13:43 | RAD ---
EXAM DESCRIPTION: Chest,1 View CLINICAL HISTORY: 67 years, Female, SOB COMPARISON: Chest x-ray dated 05/12/2017 FINDINGS: Frontal chest radiograph was performed in lordotic positioning. The lungs are well expanded and clear. The costophrenic sulci are sharp. The aortic arch is calcified. The cardiac silhouette, hilar regions, trachea, soft tissues and bony structures are unremarkable. No significant change since prior study. IMPRESSION: No acute cardiopulmonary disease. Electronically signed by: Gayle Neville MD 11/24/2017 1:42 PM [facility]
[2017-11-24 19:17] VITALS: BP 153/81; TEMP 98; O2SAT 96
== END 2017-11-24 14:57 | disposition home or self-care (01) ==
LOC: ER 11:47
DX: J20.9 Acute bronchitis, unspecified (principal); M62.81 Muscle weakness (generalized); E87.1 Hypo-osmolality and hyponatremia; F17.200 Nicotine dependence, unspecified, uncomplicated; I10 Essential (primary) hypertension
CPT/HCPCS: 36415; 71010; 80053; 83880; 85025; 93005; 94640; J7030; J7620

== ENCOUNTER → 2019-01-11 | Outpatient (CLI) | payer MEDICARE ==
--- NOTE | 2019-01-11 20:06 | US ---
EXAM DESCRIPTION: Renal: Ultrasound. CLINICAL HISTORY: 68 years Female N30.21. Chronic cystitis with hematuria. COMPARISON: Bilateral renal arterial Doppler evaluation on the same visit. TECHNIQUE: Transcutaneous scanning: Two-dimensional and Doppler modes. FINDINGS: Right kidney measures 9.0 x 5.0 x 4.6 cm; mid-renal cortical thickness normal thickness. . Increased echogenicity. No hydronephrosis No echogenic stones. Lobulated contour of the kidney with no perinephric fluid. 1.7 cm and 1.9 cm juxta cortical cysts. Normal vascularity. Proximal ureter not visualized. Left kidney measures number cm; mid-renal cortical thickness normal .. Increased echogenicity. No hydronephrosis. No echogenic stones. Lobulated contour of the kidney with no perinephric fluid. 4.0 cm cyst upper pole. 1.7 cm juxta cortical cyst, lower pole. 4.5 cm juxta cortical cyst lateral. Normal vascularity.. Proximal ureter not visualized. Urinary bladder was visualized. Volume was not measured. Abdominal aorta: not measured. IMPRESSION: 1. Bilateral kidneys with normal cortical, but increased cortical echogenicity and lobulation of the capsule. This can indicate normal aging or medical renal disease. Bilateral renal cysts. No hydronephrosis or large stones. Proximal ureters not visualized. 2. Urinary bladder was visualized. Electronically signed by: Lefty Maddox MD 01/11/2019 8:03 PM [facility]
== END ==
LOC: US 12:02
PROVIDERS: ATTEND Family Medicine
DX: N30.21 Other chronic cystitis with hematuria (principal); N28.1 Cyst of kidney, acquired

== ENCOUNTER 2019-10-10 10:09 | Emergency (ER) | payer MEDICARE ==
[2019-10-10] MEDS ORDERED: SODIUM CHLORIDE 0.9% (FLUSH) 10 ML SYG IV PRN (10:16)
[2019-10-10] MEDS ORDERED: ASPIRIN TABLET 325 MG TAB PO ONE (10:16)
[2019-10-10] MEDS ORDERED: IPRATROPIUM/ALBUTEROL 3 ML VIAL NEB ONE (10:35)
[2019-10-10] MEDS ORDERED: ENOXAPARIN SODIUM 80 MG/0.8 ML SYG SUBCU ONE (11:13)
--- NOTE | 2019-10-10 12:25 | CT ---
EXAM: CT Head Without Intravenous Contrast CLINICAL HISTORY: RLE weakness TECHNIQUE: Axial computed tomography images of the head/brain without intravenous contrast. Sagittal and coronal reformatted images were created and reviewed. This CT exam was performed using one or more of the following dose reduction techniques: automated exposure control, adjustment of the mA and/or kV according to patient size, and/or use of iterative reconstruction technique. COMPARISON: 06/28/2013. FINDINGS: Limitations: None. Brain: Now identified is a left convexity meningioma measuring 1.8 x 1.6 x 1.6 cm. No surrounding edema noted. There is age related cortical atrophy and periventricular white matter hypodensity most consistent with chronic small ischemic change. No acute infarct, hemorrhage or mass. There is a small old lacunar infarct in the right thalamus. Ventricles: Unremarkable. No ventriculomegaly. Bones/joints: Unremarkable. No acute fracture. Soft tissues: Unremarkable. Sinuses: Unremarkable as visualized. No acute sinusitis. Mastoid air cells: Unremarkable as visualized. No mastoid effusion. IMPRESSION: 1. Left convexity meningioma without edema. 2. No acute infarct or hemorrhage. Electronically signed by: Lydia Morataya MD 10/10/2019 12:23 PM [facility]
--- NOTE | 2019-10-10 12:31 | CT ---
EXAM: CT Angiography Chest With Intravenous Contrast CLINICAL HISTORY: sob TECHNIQUE: Axial computed tomographic angiography images of the chest with intravenous contrast. Sagittal and coronal reformatted images were created and reviewed. This CT exam was performed using one or more of the following dose reduction techniques: automated exposure control, adjustment of the mA and/or kV according to patient size, and/or use of iterative reconstruction technique. MIP reconstructed images were created and reviewed. COMPARISON: No relevant prior studies available. FINDINGS: Limitations: None. Pulmonary arteries: Unremarkable. No pulmonary embolism. Aorta: No acute findings. No thoracic aortic aneurysm. Lungs: Unremarkable. No mass. No consolidation. Pleural space: Unremarkable. No significant effusion. No pneumothorax. Heart: Unremarkable. No cardiomegaly. No significant pericardial effusion. No evidence of RV dysfunction. Thyroid: There are multiple bilateral thyroid hypodense nodules the largest measuring 7 mm noted on the right. Bones/joints: No acute fracture. No dislocation. Soft tissues: Unremarkable. Lymph nodes: Unremarkable. No enlarged lymph nodes. IMPRESSION: 1. No acute changes in the thorax. 2. Bilateral thyroid nodules. No further evaluation considered necessary given nodular size. Electronically signed by: Lydia Morataya MD 10/10/2019 12:29 PM [employer]
--- NOTE | 2019-10-10 13:00 | ED.PDOC ---
History of Present Illness - General Chief Complaint: General Stated Complaint: R leg pain/immobility Time Seen by Provider: 10/10/19 10:16 - History of Present Illness Initial Comments: c/o RLE pain , numbness and tingling since 1/2 hour : getting cold , clammy , pale and purple also Severity: severe Improving Factors: nothing Worsening Factors: nothing Associated Symptoms: denies symptoms Allergies/Adverse Reactions: Allergies Amoxicillin Allergy (Verified 10/10/19 10:40) NOTED ON THE 05/23/13 BY EMILIA VIGIL Home Medications: Ambulatory Orders Lisinopril 40 mg PO AM #0 07/09/13 amLODIPine BESYLATE [Norvasc] 10 mg PO DAILY 09/24/17 Review of Systems - Review of Systems Constitutional: States: no symptoms reported EENTM: States: no symptoms reported Respiratory: States: short of breath Cardiology: States: no symptoms reported Gastrointestinal/Abdominal: States: no symptoms reported Musculoskeletal: States: no symptoms reported Skin: States: see HPI Neurological: States: numbness Endocrine: States: no symptoms reported Hematologic/Lymphatic: States: no symptoms reported All other Systems: Reviewed and Negative Past Medical History (General) - Patient Medical History Hx Seizures: No Hx Stroke: No Hx Asthma: No Hx of COPD: No Hx Cardiac Disorders: No Hx Congestive Heart Failure: No Hx Pacemaker: No Hx Hypertension: Yes Hx Diabetes: No Hx Cancer: No Hx Hepatitis C: No Hx MRSA: No Surgical History: other - Vaccination History Hx Tetanus, Diphtheria Vaccination: Yes Hx Influenza Vaccination: No Hx Pneumococcal Vaccination: No - Social History Hx Tobacco Use: Yes Hx Alcohol Use: No Hx Substance Use: No Hx Substance Use Treatment: No Hx Depression: No Hx Physical Abuse: No Hx Emotional Abuse: No - Female History Patient is a Female of Child Bearing Age (10 -59 yrs old): No Patient : No Family Medical History - Family History Father Living Status: Hx Family Asthma: No Hx Family Congestive Heart Failure: No Hx Family Hypertension: No Hx Family Stroke: No Hx Cardiac Disease: No Hx Family Diabetes: No Hx Family Cancer: Yes Mother Family History: Unknown Living Status: Age at (years of age): 65 Cause of : stroke Hx Family Asthma: No Hx Family Congestive Heart Failure: Yes Hx Family Hypertension: Yes Hx Family Stroke: Yes Hx Cardiac Disease: Yes Hx Family Diabetes: No Hx Family Cancer: Yes Physical Exam - Physical Exam General Appearance: Anxious Eye Exam: bilateral normal Ears, Nose, Throat: normal ENT inspection Neck: non-tender, full range of motion, supple, normal inspection Respiratory: lungs clear, normal breath sounds, no respiratory distress, no accessory muscle use Cardiovascular/Chest: tachycardia Extremity: non-tender, other - RLE : cold , calmmy and pale Neurologic: alert, normal mood/affect, oriented x 3, sensory deficit Lymphatic: no adenopathy Progress - Progress Progress: 10/10/19 13:01 10/10/19 10:16 Sodium Chloride 0.9% (Flush) [Saline Flush Syringe] 10 ml IV PRN PRN EKG Stat Pulse Ox Stat Chest,1 View [RAD] Stat Laboratory Results WBC 10.3 K/mm3 (4.8-10.8) 10/10/19 10:30 RBC 4.31 M/mm3 (4.20-5.40) 10/10/19 10:30 Hgb 13.2 gm/dL (12.0-16.0) 10/10/19 10:30 Hct 41.0 % (36.0-47.0) 10/10/19 10:30 MCV 95.0 fl (81.0-99.0) 10/10/19 10:30 MCH 30.5 pg (27.0-31.0) 10/10/19 10:30 MCHC 32.1 g/dL (33.0-37.0) L 10/10/19 10:30 RDW 14.3 % (11.5-14.5) 10/10/19 10:30 Plt Count 344 K/mm3 (130-400) 10/10/19 10:30 MPV 8.6 fl (7.40-10.4) 10/10/19 10:30 Absolute Neuts (auto) 6.40 K/uL (1.8-6.8) 10/10/19 10:30 Absolute Lymphs (auto) 3.10 K/uL (1.0-3.4) 10/10/19 10:30 Absolute Monos (auto) 0.60 K/uL (0.2-0.8) 10/10/19 10:30 Absolute Eos (auto) 0.10 K/uL (0.0-0.4) 10/10/19 10:30 Absolute Basos (auto) 0.10 K/uL (0.0-0.1) 10/10/19 10:30 Neutrophils % 61.8 % (42.0-78.0) 10/10/19 10:30 Lymphocytes % 30.3 % (20.0-50.0) 10/10/19 10:30 Monocytes % 5.9 % (2.0-9.0) 10/10/19 10:30 Eosinophils % 1.0 % (1.0-5.0) 10/10/19 10:30 Basophils % 1.0 % (0.0-2.0) 10/10/19 10:30 PT 9.3 SECONDS (9.0-10.9) 10/10/19 10:30 INR 0.93 (0.9-1.15) 10/10/19 10:30 PTT (SP) 22.8 SECONDS (21.8-31.6) 10/10/19 10:30 D-Dimer, Quantitative 0.59 mg/L FEU (0-0.49) H* 10/10/19 10:30 Sodium 133 mmol/L (135-145) L 10/10/19 10:30 Potassium 4.1 mmol/L (3.6-5.0) 10/10/19 10:30 Chloride 97 mmol/L (101-111) L 10/10/19 10:30 Carbon Dioxide 22 mmol/L (21-31) 10/10/19 10:30 Anion Gap 18.1 (12-18) H 10/10/19 10:30 BUN 12 mg/dL (7-18) 10/10/19 10:30 Creatinine 1.02 mg/dL (0.6-1.3) 10/10/19 10:30 BUN/Creatinine Ratio 11.8 (10-20) 10/10/19 10:30 Random Glucose 216 mg/dL (70-105) H 10/10/19 10:30 Serum Osmolality 272.7 mOsm/L (275-295) L 10/10/19 10:30 Calcium 8.8 mg/dL (8.4-10.2) 10/10/19 10:30 Magnesium 1.9 mg/dL (1.8-2.5) 10/10/19 10:30 Creatine Kinase 35 IU/L (26-140) 10/10/19 10:30 CK-MB (CK-2) 1.2 ng/mL (0.0-4.4) 10/10/19 10:30 CK-MB (CK-2) % Not Reportable 10/10/19 10:30 Troponin I < 0.02 ng/mL (0.01-0.05) 10/10/19 10:30 B-Natriuretic Peptide 214.0 pg/ml (0-100) H* 10/10/19 10:30 Case d/w [facility] and agreed to transfer the pt 10/10/19 13:05 - EKG/XRAY/CT EKG: Fibrillation Departure - Departure Clinical Impression: Atrial fibrillation, PAD (peripheral artery disease), Arterial embolus and thrombosis of lower extremity, Meningioma Disposition: Transfer to Hospital Condition: Fair Departure Forms: ED Discharge - Pt. Copy, Patient Portal Self Enrollment Referrals: Brian Ribeiro MD [Primary Care Provider] - 1-2 Weeks Home Medications: Ambulatory Orders Lisinopril 40 mg PO AM #0 07/09/13 amLODIPine BESYLATE [Norvasc] 10 mg PO DAILY 09/24/17
[2019-10-10 13:19] VITALS: BP 160/116; TEMP 97.7; O2SAT 92
--- NOTE | 2019-10-10 14:13 | RAD ---
EXAM: XR Chest, 1 View CLINICAL HISTORY: sob TECHNIQUE: Frontal view of the chest. COMPARISON: 11/24/2017. FINDINGS: Limitations: None. Lungs: Unremarkable. No consolidation. Pleural space: Unremarkable. No pneumothorax. Heart: Stable cardiac prominence. Mitral annular calcification noted. Mediastinum: Unremarkable. Bones/joints: Unremarkable. IMPRESSION: No acute findings in the chest. Electronically signed by: Lydia Morataya MD 10/10/2019 2:11 PM [employer]
== END 2019-10-10 13:50 | disposition short-term general hospital (02) ==
LOC: ER 10:09
DX: I48.91 Unspecified atrial fibrillation (principal); I73.9 Peripheral vascular disease, unspecified; I74.3 Embolism and thrombosis of arteries of the lower extremities; D32.0 Benign neoplasm of cerebral meninges; R06.02 Shortness of breath; I10 Essential (primary) hypertension; Z87.891 Personal history of nicotine dependence; Z79.899 Other long term (current) drug therapy; Z88.1 Allergy status to other antibiotic agents
CPT/HCPCS: 36415; 70450; 71045; 71275; 80048; 82550; 82553; 83880; 84484; 85025; 85379; 85610; 85730; 93005; 94640; 94760; J1650; J7620

== ENCOUNTER 2019-11-14 16:45 | Emergency (ER) | payer MEDICARE ==
[2019-11-14] MEDS ORDERED: IPRATROPIUM/ALBUTEROL 3 ML VIAL INH ONE (17:01)
[2019-11-14] MEDS ORDERED: SODIUM CHLORIDE 0.9% (FLUSH) 10 ML SYG IV PRN (17:01)
[2019-11-14 17:03] VITALS: TEMP 98.2
--- NOTE | 2019-11-14 17:08 | ED.PDOC ---
History of Present Illness - General Chief Complaint: Respiratory Problem Stated Complaint: SOB x 3 days Time Seen by Provider: 11/14/19 16:58 Source: patient, RN notes reviewed, Vital Signs reviewed, family, old records - History of Present Illness Initial Comments: Pt presents to ED for SOB and cough for the past 3 days. States she was admitted to [facility] 1 month ago for new onse afib and had a thrombus in RLE that was removed. She had a CTA chest in ED at that time that was negative for PE. States she was sent home from the hospital on oxygen continuously and continues to be on 2-3 L NC at home. Pt denies fever, CP, nausea, vomiting or lower extremity edema. Pt on Eliquis. Allergies/Adverse Reactions: Allergies Amoxicillin Allergy (Verified 10/10/19 10:40) NOTED ON THE 05/23/13 BY EMILIA VIGIL Home Medications: Ambulatory Orders Lisinopril 40 mg PO AM #0 07/09/13 amLODIPine BESYLATE [Norvasc] 10 mg PO DAILY 09/24/17 Benzonatate Perles [Tessalon Perles] 100 mg PO Q6H PRN #20 cap 11/14/19 Review of Systems - Review of Systems Constitutional: Denies: fever, malaise, weakness EENTM: States: nose congestion. Denies: blurred vision, throat pain Respiratory: States: cough, short of breath. Denies: wheezing Cardiology: Denies: chest pain, edema, palpitations, syncope Gastrointestinal/Abdominal: Denies: abdominal pain, diarrhea, nausea, vomiting Genitourinary: Denies: frequency, hematuria Musculoskeletal: Denies: back pain, joint pain, joint swelling Skin: States: no symptoms reported All other Systems: Reviewed and Negative Past Medical History (General) - Patient Medical History Hx Seizures: No Hx Stroke: No Hx Asthma: No Hx of COPD: No Hx Cardiac Disorders: No Hx Congestive Heart Failure: No Hx Pacemaker: No Hx Hypertension: Yes Hx Diabetes: No Hx Cancer: No Hx Hepatitis C: No Hx MRSA: No - Vaccination History Hx Tetanus, Diphtheria Vaccination: Yes Hx Influenza Vaccination: No Hx Pneumococcal Vaccination: No - Social History Hx Tobacco Use: Yes Hx Alcohol Use: No Hx Substance Use: No Hx Substance Use Treatment: No Hx Depression: No Hx Physical Abuse: No Hx Emotional Abuse: No - Female History Patient : No Family Medical History - Family History Father Living Status: Hx Family Asthma: No Hx Family Congestive Heart Failure: No Hx Family Hypertension: No Hx Family Stroke: No Hx Cardiac Disease: No Hx Family Diabetes: No Hx Family Cancer: Yes Mother Family History: Unknown Living Status: Age at (years of age): 63 Cause of : stroke Hx Family Asthma: No Hx Family Congestive Heart Failure: Yes Hx Family Hypertension: Yes Hx Family Stroke: Yes Hx Cardiac Disease: Yes Hx Family Diabetes: No Hx Family Cancer: Yes Physical Exam - Physical Exam General Appearance: Alert, Comfortable, No apparent distress Eyes, Ears, Nose, Throat Exam: other - Oropharynx has no erythema, edema or exudates Neck: non-tender, full range of motion, supple Respiratory: chest non-tender, no respiratory distress, other - Good air movement with bilateral wheezes Cardiovascular/Chest: no edema, no murmur, irregularly irregular - normal rate Gastrointestinal/Abdominal: non tender, soft Extremity: normal range of motion, non-tender, other - No edema or cyanosis Neurologic: no motor/sensory deficits, alert, normal mood/affect Progress - Progress Progress: 11/14/19 18:01 Per rrchioords, pt has chronic hyponatremia. Today Na 125. Will treat with IVF and await final labs 11/14/19 18:26 Pt presents with cough and congestion for 3 days. Pt on home oxygen continuously. CXR unremarkable. Labs reassuring other than hyponatremia, which appears to be chronic. No hypoxia or respiratory distress. Flu+. Symptom onset >48 hours, will treat symptomatically. Tessalon and will f/u with pcp in 1-2 days for recheck. SRP given. - Results/Orders Results/Orders: 11/14/19 17:01 Sodium Chloride 0.9% (Flush) [Saline Flush Syringe] 10 ml IV PRN PRN 11/14/19 17:15 EKG STAT 11/14/19 17:21 BLOOD CULTURE Stat 11/14/19 17:44 Sodium Chloride 0.9% 1000ML [Ns 1000 ml] 1,000 ml IVS .QD 11/15/19 09:00 Pulse Ox Daily Laboratory Results - last 24 hr 11/14/19 11/14/19 11/14/19 17:21 17:21 17:21 WBC 8.6 RBC 3.82 L Hgb 11.5 L Hct 35.3 L MCV 92.5 MCH 30.2 MCHC 32.7 L RDW 13.9 Plt Count 243 MPV 8.7 Absolute Neuts (auto) 6.30 Absolute Lymphs (auto) 1.50 Absolute Monos (auto) 0.70 Absolute Eos (auto) 0.00 Absolute Basos (auto) 0.10 Neutrophils % 73.5 Lymphocytes % 17.8 L Monocytes % 7.9 Eosinophils % 0.1 L Basophils % 0.7 PT 10.3 INR 1.03 PTT (SP) 32.8 H Sodium 125 L Potassium 4.0 Chloride 92 L Carbon Dioxide 21 Anion Gap 16.0 BUN 12 Creatinine 0.88 BUN/Creatinine Ratio 13.6 Random Glucose 132 H Serum Osmolality 253.1 L* Calcium 8.4 Total Bilirubin 0.3 AST 25 ALT 17 Alkaline Phosphatase 63 Troponin I B-Natriuretic Peptide 120.0 H Serum Total Protein 7.2 Albumin 3.6 Globulin 3.6 H Albumin/Globulin Ratio 1.0 L 11/14/19 17:21 WBC RBC Hgb Hct MCV MCH MCHC RDW Plt Count MPV Absolute Neuts (auto) Absolute Lymphs (auto) Absolute Monos (auto) Absolute Eos (auto) Absolute Basos (auto) Neutrophils % Lymphocytes % Monocytes % Eosinophils % Basophils % PT INR PTT (SP) Sodium Potassium Chloride Carbon Dioxide Anion Gap BUN Creatinine BUN/Creatinine Ratio Random Glucose Serum Osmolality Calcium Total Bilirubin AST ALT Alkaline Phosphatase Troponin I < 0.02 B-Natriuretic Peptide Serum Total Protein Albumin Globulin Albumin/Globulin Ratio Influenza A Positive EXAM: Chest,1 View CLINICAL INDICATION: Shortness of COMPARISON: 10/10/2019 FINDINGS: A single view of the chest was obtained. Atherosclerotic calcifications are noted involving the aorta. The heart size is normal. The pulmonary vascularity is unremarkable. The lungs are clear except for minimal li near atelectasis adjacent to the left hilum. There is no consolidation, infiltrate, pleural effusion, or pneumothorax. IMPRESSION: No evidence of active pulmonary disease. - EKG/XRAY/CT Comments: afib, rate 78, nml QRS interval, no ST abnormality Departure - Departure Clinical Impression: Influenza A, Hyponatremia Upper respiratory infection Qualifiers: URI type: unspecified viral URI Qualified Code(s): J06.9 - Acute upper respiratory infection, unspecified Time of Disposition: 18:29 Disposition: Discharge to Home or Self Care Condition: Good Departure Forms: ED Discharge - Pt. Copy, Patient Portal Self Enrollment Instructions: Flu, Adult (DC) Diet: resume usual diet Activity: increase activity as tolerated Referrals: Brian Ribeiro MD [Primary Care Provider] - 1-2 Days Prescriptions: Benzonatate Perles [Tessalon Perles] 100 mg PO Q6H PRN #20 cap PRN Reason: Cough Home Medications: Ambulatory Orders Lisinopril 40 mg PO AM #0 07/09/13 amLODIPine BESYLATE [Norvasc] 10 mg PO DAILY 09/24/17 Benzonatate Perles [Tessalon Perles] 100 mg PO Q6H PRN #20 cap 11/14/19
[2019-11-14] MEDS ORDERED: SODIUM CHLORIDE 0.9% 1000ML 1,000 ML IVS PRN (17:44)
--- NOTE | 2019-11-14 18:10 | RAD ---
EXAM: Chest,1 View CLINICAL INDICATION: Shortness of COMPARISON: 10/10/2019 FINDINGS: A single view of the chest was obtained. Atherosclerotic calcifications are noted involving the aorta. The heart size is normal. The pulmonary vascularity is unremarkable. The lungs are clear except for minimal linear atelectasis adjacent to the left hilum. There is no consolidation, infiltrate, pleural effusion, or pneumothorax. IMPRESSION: No evidence of active pulmonary disease. Electronically signed by: Joaquim Sotelo MD 11/14/2019 6:08 PM [facility]
[2019-11-14 19:19] VITALS: BP 98/69; O2SAT 92
== END 2019-11-14 19:19 | disposition home or self-care (01) ==
LOC: ER 16:45
DX: J10.1 Influenza due to other identified influenza virus with other respiratory manifestations (principal); J06.9 Acute upper respiratory infection, unspecified; E87.1 Hypo-osmolality and hyponatremia; I48.91 Unspecified atrial fibrillation; I10 Essential (primary) hypertension; Z87.891 Personal history of nicotine dependence; Z79.899 Other long term (current) drug therapy; Z88.1 Allergy status to other antibiotic agents; Z86.718 Personal history of other venous thrombosis and embolism; Z99.81 Dependence on supplemental oxygen; Z79.01 Long term (current) use of anticoagulants
CPT/HCPCS: 36415; 71045; 80053; 83880; 84484; 85025; 85610; 85730; 87040; 87502; 93005; 94640; 94760; J7030; J7620

== ENCOUNTER → 2020-01-13 | Outpatient (CLI) | payer MEDICARE, OTHER ==
--- NOTE | 2020-01-13 15:50 | MRI ---
EXAM DESCRIPTION: Brain w/wo Contrast: Magnetic Resonance Imaging. CLINICAL HISTORY: 69 years Female MENINGIOMA COMPARISON: CT scan of the head September 2019. TECHNIQUE: Multiplanar, high-field MRI, multiple conventional sequences, without and with 1 mL per 5 kg body weight Dotarem gadolinium IV contrast. No adverse reactions. Multiple axial diffusion sequences. FINDINGS: February sagittal extra-axial mass is impressing on the posterior falx, left of midline and the adjacent parasagittal left occipital lobe at the vertex and effacing the cortical sulci and gyri. Circumscribed margins with intense enhancement. Maximum axial dimension is 1.9 x 1.7 cm. 1.4 cm craniocaudal. Similar size on the prior CT scan, taking into account difference in modalities and imaging planes. Enhancement of the adjacent meninges at the origin. No abnormal gradient signal. No diffusion restriction. Signal similar to pederson matter on T1 imaging precontrast. Multiple bilateral foci of hyperintense FLAIR and T2-weighted signal in the periventricular white matter and the subcortical white matter in the frontal parietal and occipital lobes. Also the periventricular white matter abutting the occipital horns of the intervals. Also diffuse involvement of the frontal parietal and occipital lobes. No hemorrhage, no edema, and no abnormal contrast enhancement. Old infarction versus small cyst in the right thalamus. Possible small old infarction posterior left lateral basal ganglia. Normal signal in the. Right basal ganglia. No hemorrhage, no cerebral edema, no mass-effect. Normal contrast enhancement. Normal signal in the brainstem and cerebellar hemispheres. No hemorrhage, no cerebral edema, no mass-effect. Normal contrast enhancement. The lesions described above show normal diffusion with no restriction. Remainder of the brain demonstrates concordance of the diffusion and non-diffusion sequences with no evidence of acute or subacute infarction. Cortical sulci, ventricles, and other CSF spaces, and the subdural spaces are normally configured for the patient's age. No effacement or displacement. No midline shift. No extra-axial hemorrhage. Normal contrast enhancement. Normal flow signal void in the major vessels of the grayling Ascencio, and the venous sinuses. IACs are symmetric bilaterally. Minimal fluid signal in the left side mastoid air cells; no significant enhancement. No mass effect in the bilateral Cerebellopontine angles. Normal contrast enhancement. Pituitary gland occupies most of the sella. Heterogeneous contrast enhancement. Base of the cerebellar tonsils is at the level of the foramen magnum. No significant abnormalities in the paranasal sinuses. Normal contrast enhancement. The bony calvarium is intact. IMPRESSION: 1. Almost 2 cm relatively homogeneously enhancing meningioma abutting the superior falx, and parasagittally located in the anterior left occipital lobe abutting the vertex, possibly originating from the meninges at the vertex. Mass effect and well-circumscribed, but no surrounding cerebral edema, no diffusion restriction, abnormal contrast enhancement, or no hemorrhage. Stable size since the prior CT scan September 2019 2. Diffuse confluent and focal white matter disease involving the upper periventricular white matter tracks and the bilateral centrum semiovale as well as the subcortical white matter of the frontal parietal and occipital lobes. No hemorrhage, no mass effect, no diffusion restriction. Most likely related to cerebral microvascular disease and aging. 3. Cyst versus old infarct right thalamus but no diffusion restriction. Possible old infarct left basal ganglia but no diffusion restriction. 4. Mastoiditis on the left. Electronically signed by: Lefty Maddox MD 01/13/2020 3:48 PM [facility]
== END ==
LOC: MRI 10:32
PROVIDERS: ATTEND Neurological Surgery
DX: D32.0 Benign neoplasm of cerebral meninges (principal); R90.82 White matter disease, unspecified; G93.89 Other specified disorders of brain; H70.92 Unspecified mastoiditis, left ear

== ENCOUNTER → 2020-05-03 | Outpatient (CLI) | payer OTHER ==
--- NOTE | 2020-05-03 13:24 | MRI ---
EXAM DESCRIPTION: Lumbar Spine w/o Contrast CLINICAL HISTORY: 69 years Female, LOW BACK PAIN COMPARISON: None available. TECHNIQUE: Multiplanar multiecho imaging of the lumbar spine was performed without intravenous contrast administration. FINDINGS: Straightening of the normal lordotic curvature of the lumbar spine. The vertebral body heights are well-maintained with no acute compression deformity. Multilevel intervertebral disc space narrowing is noted. The conus medullaris terminates at T12-L1 intervertebral disc space. The visualized spinal cord demonstrates no signal abnormality. L1-L2: 2 mm diffuse disc bulge and facet arthropathy with no canal stenosis. Minimal right neural foraminal narrowing is identified. L2-L3: Disc desiccation and loss of disc height. 5.7 mm posterior disc bulge with resultant mild to moderate central canal stenosis. The thecal sac measures 8.5 mm. Moderate right and mild left neural foraminal narrowing is noted secondary to facet arthropathy. L3-L4: Disc desiccation and loss of disc height. 2 mm anterolisthesis of L3 over L4. Moderate central canal stenosis with the thecal sac measuring 8mm secondary to 5 mm diffuse disc bulge, ligamentum flavum hypertrophy and facet arthropathy. Moderate bilateral neural foraminal narrowing is also noted. L4-L5: Disc desiccation and loss of disc height. 6.3 mm posterior disc osteophyte complex, ligamentum flavum hypertrophy and facet arthropathy with resultant severe central canal stenosis. The thecal sac measures 4.5 mm. Moderate right and moderate to severe left neural foraminal narrowing is also noted. L5-S1: Disc desiccation and loss of disc height. 6 mm posterior disc osteophyte complex, ligamentum flavum hypertrophy and facet arthropathy with resultant mild to moderate central canal stenosis. The thecal sac measures 8.5 mm. Moderate bilateral neural foraminal narrowing is noted secondary to facet arthropathy. A large cystic lesion is partially visualized in the left kidney. 2 cm simple cyst is identified in the interpolar region of the right kidney. Remainder of the visualized prevertebral and paravertebral soft tissues appear normal. IMPRESSION: Multilevel degenerative disc disease, ligamentum flavum hypertrophy and facet arthropathy with changes worse at L4-L5 level as described above. Electronically signed by: Carmen Contreras MD 05/03/2020 1:23 PM CDT
== END ==
LOC: MRI 09:39
PROVIDERS: ATTEND Family Medicine
DX: M51.36 Other intervertebral disc degeneration, lumbar region (principal); M24.28 Disorder of ligament, vertebrae; M12.9 Arthropathy, unspecified

== ENCOUNTER 2020-08-24 05:30 | Day surgery (SDC) | payer OTHER ==
[2020-08-24] MEDS ORDERED: BUPIVACAINE 0.5% W/EPI 30 ML VIAL INJ ONE ×2 (10:41→10:43)
[2020-08-24 14:10] VITALS: BP 148/83; TEMP 97.1; O2SAT 96
--- NOTE | 2020-08-28 11:56 | OP ---
DATE OF PROCEDURE: 08/24/20 PREOPERATIVE DIAGNOSIS: 1. Left face lesion on the upper lateral cheek. 2. Left upper cutaneous lip lesion. POSTOPERATIVE DIAGNOSIS: 1. Left face lesion on the upper lateral cheek. 2. Left upper cutaneous lip lesion. PROCEDURE: 1. Excision, left cheek mass, skin and subcutaneous tissue. Overall tumor dimension with margin is 2.6 by 2.5 cm. 2. Full thickness excision of upper lip mass, 5 by 10 mm. SURGEON: Brian Becker MD ANESTHESIA: Local. FINDINGS: The lesion on the cheek was raised with a slightly necrotic center, kind of like a donut. Its measurement was 2.1 by 2.2 cm with a gross margin of 4 mm. The lip lesion was approximately 5 by 7 mm. PROCEDURE: In the lateral position, she was prepped and draped in sterile fashion. We considered different possible flaps, but given the patient's wrinkles and mobility of her skin, a simple elliptical incision was used for the upper lateral cheek. Local anesthesia was placed with epinephrine. Elliptical incision was made over the previously marked gross borders and taken full thickness. Palpation got deep than the lesion. Nerves were functional at that time and no evidence of any nerve or vascular injury. We did undermine a little bit both ways to allow for advancement of the tissue. The left side, the nasolabial fold was pulled ever so slightly, however, overall it looked good after closure, which was done with multiple interrupted 4-0 Prolene sutures. The lip lesion, which was in the cutaneous lip on the left side, a simple elliptical incision vertically was made. It did not involve the vermilion border. I explained to her this was likely benign, but if it is malignant, she would need a referral for more complex reconstruction. It was removed with elliptical incision and closed with 3 interrupted 4-0 Prolene sutures. It look fine. She tolerated the procedure and was awakened and taken to Recovery to be discharged. #[id number] cc: MD TARA Mcconnell
== END 2020-08-24 12:30 | disposition home or self-care (01) ==
LOC: AMB 05:30
PROVIDERS: ATTEND Surgery
DX: C44.319 Basal cell carcinoma of skin of other parts of face (principal); C44.01 Basal cell carcinoma of skin of lip; I10 Essential (primary) hypertension; J44.9 Chronic obstructive pulmonary disease, unspecified; F17.200 Nicotine dependence, unspecified, uncomplicated; N28.9 Disorder of kidney and ureter, unspecified; K21.9 Gastro-esophageal reflux disease without esophagitis; Z88.0 Allergy status to penicillin; Z90.710 Acquired absence of both cervix and uterus; Z79.01 Long term (current) use of anticoagulants; Z79.82 Long term (current) use of aspirin; Z79.899 Other long term (current) drug therapy; I25.10 Atherosclerotic heart disease of native coronary artery without angina pectoris

== ENCOUNTER 2020-10-09 05:20 | Day surgery (SDC) | payer OTHER ==
[2020-10-09] MEDS ORDERED: LIDOCAINE 1% 10 ML VIAL INJ ONE ×2 (07:32→10:54)
[2020-10-09] MEDS ORDERED: BUPIVACAINE 0.5% 30 ML VIAL INJ ONE ×2 (07:33→10:55)
[2020-10-09] MEDS ORDERED: BETAMETHASONE ACETATE/BETAMETH 6 MG/ML VIAL IM ONE ×2 (07:33→10:54)
== END 2020-10-09 11:15 | disposition home or self-care (01) ==
LOC: AMB 05:20
PROVIDERS: ATTEND Family Medicine Sports Medicine
DX: M54.5 Low back pain (principal); M47.816 Spondylosis without myelopathy or radiculopathy, lumbar region; I48.91 Unspecified atrial fibrillation; I10 Essential (primary) hypertension; J44.9 Chronic obstructive pulmonary disease, unspecified; Z90.710 Acquired absence of both cervix and uterus; Z88.0 Allergy status to penicillin; Z79.82 Long term (current) use of aspirin; Z79.01 Long term (current) use of anticoagulants; Z79.899 Other long term (current) drug therapy